=== PATIENT | female | born 1990 | race Caucasian/White ===

== ENCOUNTER 2016-10-20 12:44 | Emergency (ER) | payer OTHER, BC ==
[~2016-10-20] VITALS: Ht 172.7 cm; Wt 90.7 kg
[~2016-10-20 12:44] MED LIST: ACET50TA PO; IBUP80TA PO; MOTR200T44 PO; PNVTAB4 PO; PROBCAP4 PO; [UNRECOGNIZED DRUG - OTHER]; [UNRECOGNIZED DRUG - OTHER] PO
[2016-10-20] MEDS ORDERED: NS 1,000 ML IV ONE (13:15)
[2016-10-20] MEDS ORDERED: CLAR10CA3 PO (13:15)
[2016-10-20] MEDS ORDERED: fentaNYL 100 MCG/2 ML INJECTION (J3010) IV ONE (13:15)
--- NOTE | 2016-10-20 14:10 | REP ---
Chest one-view HISTORY: Trauma Comparison: 11/08/2007 The lungs are clear. The heart is normal in size. The pulmonary vasculature is normal in appearance. Impression: No acute disease. Signed by Simone Ortiz MD 10/20/2016 02:01 P
[2016-10-20 14:17] LABS: BASO % 0.2 % (0.0-1.0); EOS # 0.1 K/mm3 (0.0-0.50); EOS % 0.6 % (0.0-3.0); LARGE UNSTAINED CELL # 0.1 K/mm3 (0.0-0.4); LARGE UNSTAINED CELL % 0.8 % (0.0-4.0); LYMPH # 1.6 K/mm3 (1.5-6.5); LYMPH % 13.5 % (24.0-44.0); MEAN CORPUSCULAR HEMOGLOBIN 28.8 pg (27.0-33.0); MEAN CORPUSCULAR HGB CONC 33.7 g/dl (32.0-36.5); MEAN CORPUSCULAR VOLUME 85.5 fl (80.0-96.0); MONO # 0.4 K/mm3 (0.0-0.8); MONO % 3.8 % (0.0-5.0); NEUTROPHILS # 9.2 K/mm3 (1.8-7.7); NEUTROPHILS % 81.2 % (36.0-66.0); PLATELET COUNT, AUTOMATED 228 k/mm3 (150-450); RED CELL DISTRIBUTION WIDTH 12.5 % (11.5-14.5); WHITE BLOOD COUNT 11.4 K/mm3 (4.0-10.0)
[2016-10-20 14:26] LABS: INR 1.02
--- NOTE | 2016-10-20 14:37 | REP ---
PELVIS, LEFT HIP, THREE VIEWS: HISTORY: Hip pain. There is no acute fracture or dislocation. The joint spaces are normal in appearance. IMPRESSION: There is no acute fracture or dislocation. Signed by Simone Ortiz MD 10/20/2016 02:42 P
--- NOTE | 2016-10-20 14:38 | REP ---
RIGHT ANKLE, FOUR VIEWS: There is no evidence of an acute fracture, dislocation or intrinsic bone disease. The ankle mortise is anatomic. IMPRESSION: No fracture or dislocation. Signed by Mane Youngblood MD 10/20/2016 05:20 P
[2016-10-20 14:42] LABS: ALBUMIN 3.7 GM/DL (3.2-5.2); ALBUMIN/GLOBULIN RATIO 1.12 (1.00-1.93); ALKALINE PHOSPHATASE 52 U/L (45-117); ALT/SGPT 24 U/L (12-78); ANION GAP 9 MEQ/L (8-16); AST/SGOT 16 U/L (15-37); BILIRUBIN,DIRECT 0.1 MG/DL (0.0-0.2); BILIRUBIN,TOTAL 0.5 MG/DL (0.2-1.0); BLOOD UREA NITROGEN 15 MG/DL (7-18); CALCIUM LEVEL 8.9 MG/DL (8.5-10.1); CARBON DIOXIDE LEVEL 25 MEQ/L (21-32); CHLORIDE LEVEL 108 MEQ/L (98-107); CREATININE FOR GFR 0.98 MG/DL (0.55-1.02); GLOMERULAR FILTRATION RATE > 60.0 (>60); GLUCOSE, FASTING 97 MG/DL (70-105); POTASSIUM SERUM 3.8 MEQ/L (3.5-5.1); SODIUM LEVEL 142 MEQ/L (136-145)
--- NOTE | 2016-10-20 14:45 | REP ---
AP AND LATERAL LEFT KNEE, TWO VIEWS: HISTORY: Pain. There is no acute fracture or dislocation. The joint spaces are normal in appearance. IMPRESSION: There is no acute fracture or dislocation. Signed by iSmone Ortiz MD 10/20/2016 02:48 P
[2016-10-20] MEDS ORDERED: ISOVUE-370 76% 100ML VIAL (Q9967) As Ordered ONE (15:03)
[2016-10-20] MEDS ORDERED: CYCLOBENZAPRINE 5MG TABLET PO ONE (16:15)
[2016-10-20] MEDS ORDERED: PERCOCET 5MG/325MG TAB PO ONE (16:15)
[2016-10-20] MEDS ORDERED: OXYC1TAB23 PO (16:18)
[2016-10-20] MEDS ORDERED: CYCL5TA PO (16:20)
[2016-10-20] MEDS ORDERED: IBUP600T26 PO (16:21)
[2016-10-20 17:01] VITALS: BP 109/62
--- NOTE | 2016-10-21 07:19 | REP ---
CT ABDOMEN AND PELVIS WITH IV CONTRAST: TECHNIQUE: Axial contrast enhanced images from the lung bases to the pubic symphysis using 100 mL Isovue 370 intravenous contrast material with multiplanar reformations. Visualized lung bases are clear. The liver, spleen, adrenals, pancreas and kidneys are normal in appearance. There is no free air or free fluid. There is no adenopathy. There is no abdominal aortic aneurysm. No bowel wall thickening is seen. The appendix is normal. There is no pelvic mass. Urinary bladder appears intact. Visualized osseous structures appear intact with no fracture. IMPRESSION: Negative CT abdomen and pelvis with no evidence of visceral organ injury and no evidence of fracture of the visualized osseous structures. Signed by Mane Youngblood MD 10/24/2016 03:58 P
== END 2016-10-20 17:06 | disposition home or self-care (01) ==
LOC: M ED 12:51
DX: M25.552 Pain in left hip (principal); V03.10XA Pedestrian on foot injured in collision with car, pick-up truck or van in traffic accident, initial encounter; Y92.410 Unspecified street and highway as the place of occurrence of the external cause; Y93.89 Activity, other specified; Y99.8 Other external cause status; E16.2 Hypoglycemia, unspecified
CPT/HCPCS: 71010; 73502; 73560; 73610; 74177; 80048; 80076; 81001; 83690; 85025; 85610; 85730; 94760; 96374; 99284; J3010; Q9967

== ENCOUNTER → 2017-03-26 | Outpatient (CLI) | payer BC, OTHER ==
[~2017-03-26] MED LIST changes: +CLAR10CA3 PO; +CYCL5TAB PO; +IBUP-1022 PO; +OXYC1TAB23 PO
[2017-03-26 19:36] LABS: BASO % 0.3 % (0.0-1.0); EOS # 0.1 10^3/uL (0.0-0.50); EOS % 1.1 % (0.0-3.0); IMMATURE GRANULOCYTE % 0.3 % (0-0); LYMPH % 27.1 % (24.0-44.0); MEAN CORPUSCULAR HEMOGLOBIN 29.3 pg (27.0-33.0); MEAN CORPUSCULAR VOLUME 86.3 fl (80.0-96.0); MONO # 0.7 10^3/uL (0.0-0.8); MONO % 8.8 % (0.0-5.0); NEUTROPHILS # 4.7 10^3/uL (1.8-7.7); NEUTROPHILS % 62.4 % (36.0-66.0); PLATELET COUNT, AUTOMATED 233 10^3/uL (150-450); RED CELL DISTRIBUTION WIDTH 12.5 % (11.5-14.5); WHITE BLOOD COUNT 7.5 10^3/uL (4.0-10.0)
[2017-03-28 11:06] LABS: HBsAg Prenatal NEGATIVE (NEGATIVE)
== END ==
LOC: M SMT 09:59
PROVIDERS: ATTEND Advanced Practice Midwife
DX: Z34.81 Encounter for supervision of other normal pregnancy, first trimester (principal)

== ENCOUNTER → 2017-04-09 | Outpatient (REF) | payer OTHER | LOC: M LAB REF 13:02 | PROVIDERS: ATTEND Advanced Practice Midwife | DX: Z34.81 Encounter for supervision of other normal pregnancy, first trimester (principal) ==

== ENCOUNTER → 2017-05-07 | Outpatient (REF) | payer OTHER | LOC: M LAB REF 13:08 | PROVIDERS: ATTEND Advanced Practice Midwife | DX: Z34.81 Encounter for supervision of other normal pregnancy, first trimester (principal) ==

== ENCOUNTER → 2017-10-15 | Outpatient (REF) | payer OTHER | LOC: M LAB REF 18:11 | DX: Z34.83 Encounter for supervision of other normal pregnancy, third trimester (principal) | CPT/HCPCS: 87081 ==

== ENCOUNTER 2017-11-02 00:17 | Inpatient (IN) | payer BC, OTHER ==
[2017-11-02] MEDS ORDERED: PROMETHAZINE INJ 25 MG/ML VIAL (J2550) IV (01:30)
[2017-11-02] MEDS: BUTORPHANOL 2 MG/ML INJ (J0595) IV (01:30)
[2017-11-02 01:48] LABS: HEMATOCRIT 31.4 % (36.0-47.0); HEMOGLOBIN 9.9 g/dl (12.0-15.5); MEAN CORPUSCULAR HEMOGLOBIN 25.5 pg (27.0-33.0); MEAN CORPUSCULAR HGB CONC 31.5 g/dl (32.0-36.5); MEAN CORPUSCULAR VOLUME 80.9 fl (80.0-96.0); PLATELET COUNT, AUTOMATED 261 10^3/uL (150-450); RED BLOOD COUNT 3.88 10^6/uL (4.00-5.40); RED CELL DISTRIBUTION WIDTH 12.7 % (11.5-14.5); WHITE BLOOD COUNT 11.8 10^3/uL (4.0-10.0)
[2017-11-02] MEDS ORDERED: OXYTOCIN 30 UNITS IN 0.9% NaCl 500ML IV BAG (J2590) As Ordered (04:07)
[2017-11-02] MEDS: OXYTOCIN DRIP 30 UNITS in APPROPRIATE DILUENT 1 EA IV (05:34)
[2017-11-02] MEDS: LIDOCAINE 1% MDV 20ML VIAL INFIL (05:45)
[2017-11-02] MEDS ORDERED: MOM 30ML SUSPENSION UDC PO (05:45)
[2017-11-02] MEDS ORDERED: PROMETHAZINE 25 MG TAB PO (05:45)
[2017-11-02] MEDS ORDERED: MEASLES,MUMPS,RUBELLA VACCINE INJ (MMR-II) (90707) SC (05:45)
[2017-11-02] MEDS ORDERED: RHOGAM 300 MCG (1500 IU) INJ (J2790) IM (05:45)
[2017-11-02] MEDS ORDERED: DIBUCAINE 1% OINTMENT 30GM TOP (05:45)
[2017-11-02] MEDS ORDERED: METHYLERGONOVINE MALEATE 0.2 MG TAB PO (05:45)
[2017-11-02] MEDS ORDERED: ANUSOL HC CREAM 30GM TOP (05:45)
[2017-11-02] MEDS: IBUPROFEN 800 MG TAB PO ×2 (05:49→14:18)
[2017-11-02] MEDS: PRENATAL VITAMINS CHEWABLE TABLET PO (08:34)
[2017-11-02] MEDS: ACETAMINOPHEN 500 MG TAB PO ×3 (08:35→21:52)
[2017-11-02] MEDS: DOCUSATE SODIUM 100 MG CAP PO (21:51)
[2017-11-03] MEDS: IBUPROFEN 800 MG TAB PO (04:15)
[2017-11-03] MEDS: PRENATAL VITAMINS CHEWABLE TABLET PO (09:23)
== END 2017-11-03 13:50 | disposition home or self-care (01) | DRG 560 ==
LOC: M LDO 00:17 → M LDI 01:18 → M OBS 10:30
PROVIDERS: Obstetrics & Gynecology
PROC: 10E0XZZ Delivery of Products of Conception, External Approach (ICD-10-PCS; principal; 2017-11-02)
PROC: 0HQ9XZZ Repair Perineum Skin, External Approach (ICD-10-PCS; 2017-11-02)
DX: O70.0 First degree perineal laceration during delivery (principal); Z37.0 Single live birth; Z3A.39 39 weeks gestation of pregnancy; Z88.0 Allergy status to penicillin; Z88.2 Allergy status to sulfonamides

== ENCOUNTER → 2018-12-06 | Outpatient (REF) | payer OTHER ==
[~2018-12-06] MED LIST changes: -ACET50TA PO; +IBUP-1114 PO; +MAPA500T2 PO; +RANI15TA PO
[2018-12-06 12:01] LABS: ALT/SGPT 60 U/L (12-78)
== END ==
LOC: M LABDRAWP 11:18
PROVIDERS: ATTEND Internal Medicine Rheumatology
DX: M13.0 Polyarthritis, unspecified (principal)

== ENCOUNTER → 2020-08-05 | Outpatient (REF) | payer OTHER ==
[2020-08-05 13:01] LABS: BASO % 0.3 % (0.0-1.0); EOS # 0.1 10^3/uL (0.0-0.5); EOS % 1.3 % (0.0-3.0); HEMOGLOBIN 12.7 g/dl (12.0-15.5); LYMPH # 1.9 10^3/uL (1.5-5.0); MEAN CORPUSCULAR HEMOGLOBIN 29.1 pg (27.0-33.0); MEAN CORPUSCULAR HGB CONC 32.6 g/dl (32.0-36.5); MEAN CORPUSCULAR VOLUME 89.4 fl (80.0-96.0); MONO # 0.5 10^3/uL (0.0-0.8); MONO % 8.2 % (2.0-8.0); NEUTROPHILS # 3.7 10^3/uL (1.5-8.5); NEUTROPHILS % 59.9 % (36.0-66.0); PLATELET COUNT, AUTOMATED 234 10^3/uL (150-450); RED BLOOD COUNT 4.36 10^6/uL (4.00-5.40); WHITE BLOOD COUNT 6.2 10^3/uL (4.0-10.0)
[2020-08-05 13:21] LABS: ALBUMIN 3.9 GM/DL (3.2-5.2); ALT/SGPT 61 U/L (12-78); C REACTIVE PROTEIN QUANTITATIV 0.47 MG/DL (0.00-0.30); GLOMERULAR FILTRATION RATE > 60.0 (>60)
[2020-08-05 13:37] LABS: ERYTHROCYTE SEDIMENTATION RATE 12 mm/hr (0-20)
== END ==
LOC: M LABDRWAD 12:28
PROVIDERS: ATTEND Internal Medicine Rheumatology
DX: Z79.899 Other long term (current) drug therapy (principal)

== ENCOUNTER → 2020-08-26 | Outpatient (REF) | payer OTHER ==
[2020-08-26 13:27] LABS: ALT/SGPT 24 U/L (12-78)
== END ==
LOC: M LABDRWAD 12:39
PROVIDERS: ATTEND Internal Medicine Rheumatology
DX: R79.89 Other specified abnormal findings of blood chemistry (principal)

== ENCOUNTER → 2021-07-21 | Outpatient (REF) | payer OTHER ==
[2021-07-21 16:46] LABS: ALBUMIN 3.8 GM/DL (3.2-5.2); ALT/SGPT 28 U/L (12-78); BILIRUBIN,TOTAL 0.3 MG/DL (0.2-1.0); BLOOD UREA NITROGEN 22 MG/DL (7-18); CALCIUM LEVEL 9.1 MG/DL (8.5-10.1); CARBON DIOXIDE LEVEL 26 MEQ/L (21-32); CHLORIDE LEVEL 109 MEQ/L (98-107); CREATININE FOR GFR 0.98 MG/DL (0.55-1.30); GLOMERULAR FILTRATION RATE > 60.0 (>60); GLUCOSE, FASTING 100 MG/DL (70-100); POTASSIUM SERUM 3.8 MEQ/L (3.5-5.1); SODIUM LEVEL 140 MEQ/L (136-145)
[2021-07-22 10:56] LABS: TOTAL 25(OH) VITAMIN D 34.2 NG/ML (30.0-100.0)
== END ==
LOC: M SFHCADAM 15:12
PROVIDERS: ATTEND Physician Assistant Medical
DX: Z00.00 Encounter for general adult medical examination without abnormal findings (principal); L40.50 Arthropathic psoriasis, unspecified; E66.9 Obesity, unspecified; F41.1 Generalized anxiety disorder

== ENCOUNTER → 2022-09-07 | Outpatient (CLI) | payer BC, OTHER ==
[2022-09-07 09:52] LABS: ALBUMIN 3.9 G/DL (3.2-5.2); ALKALINE PHOSPHATASE 45 U/L (46-116); ALT/SGPT 21 U/L (7.0-40); AST/SGOT 22 U/L (<34); BILIRUBIN,TOTAL 0.8 MG/DL (0.3-1.2); BLOOD UREA NITROGEN 19 MG/DL (9-23); CALCIUM LEVEL 8.6 MG/DL (8.5-10.1); CARBON DIOXIDE LEVEL 26 MMOL/L (20-31); CHLORIDE LEVEL 108 MMOL/L (98-107); CHOLESTEROL LEVEL 139 MG/DL (<200); CHOLESTEROL RISK RATIO 2.98 (<5); CREATININE FOR GFR 0.91 MG/DL (0.55-1.30); GLOMERULAR FILTRATION RATE > 60.0 (>60); GLUCOSE, FASTING 88 MG/DL (60-100); HDL CHOLESTEROL 46.6 MG/DL (>40); LDL CHOLESTEROL 77.6 MG/DL (<100); NON-HDL-C 92.4 MG/DL; POTASSIUM SERUM 4.5 MMOL/L (3.5-5.1); SODIUM LEVEL 142 MMOL/L (136-145); THYROID STIMULATING HORMONE 1.977 uIU/ML (0.55-4.78); TOTAL 25(OH) VITAMIN D 45.5 NG/ML (20.0-100.0); TOTAL PROTEIN 6.6 G/DL (5.7-8.2); TRIGLYCERIDES LEVEL 74 MG/DL (<150)
== END ==
LOC: M RAD 06:43
PROVIDERS: ATTEND Physician Assistant Medical
DX: Z00.00 Encounter for general adult medical examination without abnormal findings (principal); R79.89 Other specified abnormal findings of blood chemistry; L40.50 Arthropathic psoriasis, unspecified; E66.9 Obesity, unspecified; F41.1 Generalized anxiety disorder

== ENCOUNTER → 2023-05-21 | Outpatient (CLI) | payer BC, OTHER ==
[2023-05-21 08:44] LABS: BASO % 0.3 % (0.0-1.0); EOS % 0.7 % (0.0-3.0); HEMATOCRIT 38.3 % (36.0-47.0); HEMOGLOBIN 12.9 g/dl (12.0-15.5); LYMPH # 1.5 10^3/uL (1.5-5.0); LYMPH % 26.2 % (24.0-44.0); MEAN CORPUSCULAR HEMOGLOBIN 30.1 pg (27.0-33.0); MEAN CORPUSCULAR HGB CONC 33.7 g/dl (32.0-36.5); MEAN CORPUSCULAR VOLUME 89.3 fl (80.0-96.0); MONO # 0.5 10^3/uL (0.0-0.8); MONO % 8.6 % (2.0-8.0); NEUTROPHILS # 3.7 10^3/uL (1.5-8.5); NEUTROPHILS % 63.9 % (36.0-66.0); PLATELET COUNT, AUTOMATED 237 10^3/uL (150-450); RED BLOOD COUNT 4.29 10^6/uL (4.00-5.40); WHITE BLOOD COUNT 5.7 10^3/uL (4.0-10.0)
[2023-05-21 08:55] LABS: ERYTHROCYTE SEDIMENTATION RATE 9 mm/hr (0-20)
[2023-05-21 09:10] LABS: ALBUMIN 3.7 G/DL (3.2-5.2); ALT/SGPT 16 U/L (7.0-40); AST/SGOT 14 U/L (<34); BLOOD UREA NITROGEN 12 MG/DL (9-23); CREATININE FOR GFR 0.87 MG/DL (0.55-1.30); GLOMERULAR FILTRATION RATE > 60.0 (>60)
== END ==
LOC: M LAB 08:06
PROVIDERS: ATTEND Physician Assistant
DX: Z79.899 Other long term (current) drug therapy (principal)

== ENCOUNTER → 2024-02-13 | Outpatient (CLI) | payer BC ==
[2024-02-13 19:23] LABS: FREE T4 1.22 NG/DL (0.89-1.76); THYROID STIMULATING HORMONE 1.776 uIU/ML (0.55-4.78)
[2024-02-13 19:24] LABS: PROLACTIN 6.63 NG/ML
[2024-02-13 19:38] LABS: HEMOGLOBIN A1c 4.6 % (4.0-6.0)
[2024-02-15 09:38] LABS: DEHYDROEPIANDROSTERONE SULFATE 202 mcg/dL (19-237)
[2024-02-16 12:02] LABS: HPV APTIMA Not Detected (Not Detected)
== END ==
LOC: M PLALAB 14:25
PROVIDERS: ATTEND Nurse Practitioner Family
DX: Z12.4 Encounter for screening for malignant neoplasm of cervix (principal); N92.0 Excessive and frequent menstruation with regular cycle; Z77.9 Other contact with and (suspected) exposures hazardous to health
CPT/HCPCS: 36415; 82627; 83036; 83498; 84146; 84402; 84403; 84439; 84443; 87624; G0123

== ENCOUNTER → 2024-04-18 | Outpatient (CLI) | payer BC | LOC: M RAD 15:47 | PROVIDERS: ATTEND Nurse Practitioner Family | DX: N94.10 Unspecified dyspareunia (principal); N92.0 Excessive and frequent menstruation with regular cycle; R93.89 Abnormal findings on diagnostic imaging of other specified body structures ==

== ENCOUNTER → 2024-05-07 | Outpatient (REF) | payer BC, OTHER ==
[~2024-05-07] MED LIST changes: -CYCL5TAB PO; +CYCL5TAB4 PO
== END ==
LOC: M SFHCWAGY 18:14
PROVIDERS: ATTEND Nurse Practitioner Family
DX: Z12.4 Encounter for screening for malignant neoplasm of cervix (principal); R87.610 Atypical squamous cells of undetermined significance on cytologic smear of cervix (ASC-US)

== ENCOUNTER → 2025-05-26 | Outpatient (REF) | payer OTHER ==
[~2025-05-26] MED LIST changes: +ALLE10TA62 PO; +AZAT50TA37 PO; +COLA100C5 PO; -IBUP-1022 PO; +IBUP600T42 PO; +METF-838 PO; +OREN125I2
== END ==
LOC: M SFHCDERM 18:02
PROVIDERS: ATTEND Nurse Practitioner Family
DX: L57.0 Actinic keratosis (principal)